=== PATIENT | male | born 1970 ===

== ENCOUNTER → 2017-06-09 | Day surgery (SDC) | payer OTHER ==
[2017-05-23 11:38] VITALS: Ht 180.3 cm; Wt 100.0 kg
[~2017-06-09] VITALS: Ht 180.3 cm; Wt 100.0 kg
[~2017-06-09] MED LIST: ARTI99.0 OPL; ATROPINE SULFATE 0.1 MG/ML 5ML SYR IV PRN; BUPIVACAINE 0.5 % 5 MG/1 ML MPF 30ML VIAL ONE; CEFAZOLIN 2000MG IV PUSH 10 ML IV SCH; EpHEDrine SULFATE INJ 50 MG/ML AMP IV PRN; EpINEphrine HCL INJ 1 MG/ML 5ML SYRINGE ONE; FENTANYL CITRATE INJ 50 MCG/1 ML 2 ML VIAL IV PRN; FENTANYL CITRATE INJ 50 MCG/1 ML 2 ML VIAL ONE; GLYCOPYRROLATE INJ 0.2 MG/ML VIAL ONE; LACTATED RINGER'S 1000ML 1,000 ML IV SCH; LIDOCAINE HCL 2% 2 ML VIAL (20MG/ML) ONE; LIDOCAINE/EPINEPHRINE 1% INJ 50 ML VIAL ONE; METOCLOPRAMIDE HCL INJ 5 MG/ML 2 ML VIAL IV PRN; MIDAZOLAM HCL 1 MG/ML 2ML VIAL ONE; MoRPHine SULFATE 4 MG/ML 1 ML CARP\\VIAL IV PRN; NAPR-1169 PO; NEOSTIGMINE METHYLSULFATE 5 MG/5 ML SYR ONE; ONDANSETRON INJ 2 MG/ML 2 ML VIAL IV PRN; OXYC-57 PO; OXYCODONE/ACETAMINOPHEN 5-325 TAB PO PRN; PROPOFOL IV EMULSION 10 MG/ML 20 ML VIAL IV ONE; ROCURONIUM BROMIDE 10 MG/ML 5 ML VIAL IV ONE; ROPIVACAINE 0.5% 5 MG/ML 30 ML VIAL ONE; SODIUM CHLORIDE 0.9% 1000ML 1,000 ML IV SCH
--- NOTE | 2017-06-09 09:24 | History and Physical: Surg Cnt ---
History & Physical Date Jun 09, 2017. Chief Complaint Right shoulder injury/deformity History of Present Illness The patient is a 47 year old male with complaints of right shoulder injury approximately one year ago. He was weightlifting and performing isolated bicep curls with 205 pounds when he felt a pop in his right shoulder followed by pain. He reports having a deformity of his proximal biceps when he flexes his right elbow. The patient states his pain gradually improved and his strength returned but continues with his deformity. He is interested in surgical intervention. Denies any prior injury to the right upper extremity. Denies numbness and tingling of his right upper extremity. Past Medical/Surgical History Past Medical History: -negative for any type of currently treated pathology Past Surgical History: -negative Social History: -patient is currently an inmate at [facility]. Smokes approximately 7 cigarettes per day. Family History: -non-contributory Additional History Hepatic Disease: No Endocrine Disorder: No Kidney Disease: No Hypertension: No Heart Disease: No Bleeding Tendencies: No Infectious Diseases: No Other: Review of systems: The patient denies headache, chest pain, shortness of breath , fevers, chills, night sweats. Allergies Coded Allergies: No Known Allergies (Unverified , 06/09/17) Home Medications Scheduled Artificial Tear Solution (Natural Balance Tears 70.01-0.3 %), 2 DROP OPL QID Naproxen (Naprosyn), 500 MG PO BID Physical Examination Skin: warm/dry, no rash Eyes: normal inspection, + pertinent finding (wears an eye patch on the left eye) ENT: normal ENT inspection, + pertinent finding (appears to have good dentition , no evidence of exudates or erythema in the oral cavity, oral and nasal cavities are patent.) Head: normocephalic, atraumatic Respiratory/Chest: lungs clear, normal breath sounds, no respiratory distress Cardiovascular: regular rate, rhythm, no edema, no murmur Abdomen / GI: normal bowel sounds, non tender Back: normal inspection Extremities: normal inspection (until flexes right elbow), normal range of motion, + pertinent finding (There is a "Derrick" deformity of the right proximal biceps while flexing at the right elbow, which also has full range of motion. He has +5 strength. Mild tenderness while palpating in the bicepital groove. Provocative testing of the right shoulder is negative and does not elicit any pain. ) Neurologic/Psych: no motor/sensory deficits, alert, oriented x 3 Diagnosis Right shoulder long head biceps tear Plan of Treatment Kevin will undergo a right shoulder arthroscopy, rotator cuff and labral repairs vs. debridement, long head biceps tenotomy versus tenodesis, subacromial decompression, exam under anesthesia. He will be provided with narcotic pain medication at [facility]. I would recommend Percocet 5/325mg 1- 2 every 4-6 hours as needed for pain. Ice can be placed over the right shoulder for cryotherapy. Pre-operative labs have been obtained in the form of a CBC, CMP, PT/INR. A two week follow up will be required for suture removal and post-operative check. Any other questions or concerns please notify [facility] at [phone], thank you.
--- NOTE | 2017-06-09 10:28 | History & Physical Bridge - SC ---
H&P Re-Evaluation Bridge Note: I have examined the patient, reviewed the History & Physical and in the interval since the performance of the History & Physical I have noted the following changes of clinical significance: No changes noted
--- NOTE | 2017-06-09 11:50 | Discharge Instructions-SurgCtr ---
Discharge Instructions Date of Service Jun 09, 2017. Visit Reason for Visit: Right Shoulder Proximal Biceps Tear Discharge Discharge Diagnosis / Problem: Right shoulder long head biceps tear Discharge Goals Goal(s): Decrease discomfort, Improve function, Increase independence Activity Recommendations Activity Limitations: as noted below Lifting Limitations: until after follow-up appointment Exercise/Sports Limitations: until after follow-up appointment Shower/Bathe: keep incision dry Anesthesia . Post Anesthesia Instructions: If you have had General Anesthesia or IV Sedation: * Do not drive today. * Resume driving when surgeon permits. * Do not make important decisions or sign legal documents today. * Call surgeon for: 1. Temperature elevations greater than 101 degrees F. 2. Uncontrollable pain. 3. Excessive bleeding. 4. Persistent nausea and vomiting. 5. Medication intolerance (nausea, vomiting or rash). * For nausea and vomiting use only clear liquids such as: tea, soda, bouillon until nausea subsides, then gradually increase diet as tolerated. * If you have any concerns or questions, call your surgeon's office. If physician is unavailable and it is an emergency, call 911 or go to the nearest emergency room. . Instructions / Follow-Up Instructions / Follow-Up The following are instructions to follow after "Shoulder Surgery" ACTIVITY RECOMMENDATIONS: * Minimize activity after surgery. * No excessive walking, jogging, sports or laboring. * Return to activity is individualized depending on the patient and type of surgery. * Expect increased discomfort with increased activity. Continue to ice the shoulder as needed. MEDICATIONS: * You will need pain medication and an anti-inflammatory medication after surgery. * Use the pain medication for severe pain and the anti-inflammatory for less severe pain. Once the pain medication has run out, try to use the anti-inflammatory medication. If this is not effective, contact the office for assistance. * The pain medication may cause nausea, constipation and drowsiness. * The anti-inflammatory medication may cause stomach upset and bleeding. If this occurs let your doctor know immediately . * Take a stool softener like Colace or a laxative like Senokot to prevent constipation. DIET: * Resume previous diet. SPECIAL CARE: ICE: You have the option of an ice cooler, gel packs or ice bags. * use ice bags or gel packs. Do not apply ice directly to the skin. Use a thin dressing or miriam shirt between the skin and ice bag. Apply ice for 20-30 minutes and repeat every 2-4 hours. This is especially important for the first 7-10 days after surgery. Once the pain improves, use ice as needed. ELEVATION: * You may be more comfortable sleeping in an upright position. Use the sling to elevate your arm. DRESSING: * Your dressing will be changed approximately 4-5 days after surgery. Band-aids, tape strips or gauze may be applied. You may then change your dressing daily. * Do not touch the incision area. * Once the stitches are removed, you may leave the wound open to air or cover with gauze. * Expect some bloody drainage for the first few days after surgery. * Band-aids and gauze may be changed daily. * There may be a gauze pad in your armpit area. This can be changed daily or replaced by a dry washcloth. SLING/BRACE: * You will need to use a sling or brace after surgery. The length of time the sling is used is dependent upon the type of surgery performed. * Arthroscopic Acromioplasty requires use of the sling for 2-4 weeks for comfort. * Labral procedures and Rotator Cuff Repairs require use of the sling for a longer period of time. Please check with your doctor prior to discontinuing the sling. BATHING: * You may shower or sponge-bathe immediately after surgery. The post operative shoulder dressing is mostly water-tight. You may shower right over this dressing, but be reasonably careful not to get the gauze or incision wet. * Once the dressing has been changed on the fourth or fifth day after surgery, you may shower and get the incision wet. * Wash with regular soap and water. * Keep the surgical site dry. Keep covered when showering and then replace bandages. * There is no need to apply any ointments, powders or salves to your incision. * Do not apply alcohol or hydrogen peroxide directly to the incision. * Diluted peroxide (50:50 mixture with sterile saline) may be used to clean dried blood from around the incision area. THERAPY: * You will begin therapy four or five days after surgery. * Organized therapy with the therapist is important for the first 2-4 months after surgery depending on the type of procedure. During that time you will attend therapy 1-3 times per week. * You will also need to do daily exercises for range of motion and strength as instructed. * Please check with your doctor regarding appropriate motion restrictions. * You are permitted to perform pendulums to prevent shoulder stiffness * You are permitted to perform active-assisted range of motion at the right elbow out of the sling * You are not permitted to perform any type of resistance regarding flexion or extension at the right elbow * It will take several months to slowly regain full/near full extension at the right elbow. Extension exercises/therapy at the right elbow will be constitution party of your therapy protocol. FOLLOW UP VISIT: * If not already scheduled, please call the office at to schedule a follow-up appointment for 10-15 days after surgery with Dr[address] Roy Diet Recommendations Home Diet: resume previous diet Procedures Procedures Performed: Right shoulder arthroscopy, subacromial decompression, labral and rotator cuff debridement, open long head biceps tenodesis, exam under anesthesia Pending Studies Studies pending at discharge: no Medical Emergencies . Who to Call and When: Medical Emergencies: If at any time you feel your situation is an emergency, please call 911 immediately. . Non-Emergent Contact Non-Emergency issues call your: Primary Care Provider . . "Provider Documentation" section prepared by Eduardo Rae. . [place] Drug Monitoring Program Search Results: no issues identified
--- NOTE | 2017-06-09 14:22 | [facility] Post Operative Brief Note ---
Immediate Operative Summary Operative Date Jun 09, 2017. Pre-Operative Diagnosis Right Shoulder Proximal Biceps Tear Post-Operative Diagnosis Same + labral tears, Rotator cuff partial undersurface tears, Impingement. Procedure(s) Performed 1) Right shoulder open long head biceps tenodesis. 2) Arthroscopy with extensive debridement labral and rotator cuff. 3) Subacromial decompression. 4) Exam under anesthesia Surgeon Dr Roy Mobile Security Specialist Surgeon(s) Katia Bear MD Estimated Blood Loss 15 ML Findings As above. Fluids (cc crystalloids) 1200 Specimens None Drains n/a Anesthesia GET + interscalene Nerve block Complication(s) None Disposition Recovery Room / PACU (Stable)
--- NOTE | 2017-06-09 14:24 | [facility] Operative Report ---
Operative Report Operative Date Jun 09, 2017. Pre-Operative Diagnosis Right Shoulder Proximal Biceps Tear Post-Operative Diagnosis Same + labral tears, Rotator cuff partial undersurface tears, Impingement. Procedure(s) Performed 1) Right shoulder open long head biceps tenodesis. 2) Arthroscopy with extensive debridement labral and rotator cuff. 3) Subacromial decompression. 4) Exam under anesthesia Surgeon Dr Roy Receiving Supervisor Surgeon(s) Katia Bear MD Estimated Blood Loss 15 ML Findings The Right shoulder was then examined under anesthesia and it exhibited: Forward flexion and abduction to 170 degrees; external rotation 90 degrees; internal rotation 55 degrees. There was no noted instability. Posterior and anterior translation was 1+ and they had no sulcus sign and was symmetric to their other side. The diagnostic arthroscopy commenced with the following findings: 1. The biceps anchor was at evidence of significant fraying, type II tear. There was significant synovitis around the anchor. 2. The anterior labrum showed some fraying from 12:00 to 3:00. 3. The inferior labrum was essentially intact. 4. The inferior pouch showed no loose bodies. 5. The posterior labrum showed some fraying from 9:00 to 12:00. 6. The articular surface of the glenoid was intact. 7. The articular surface of humeral head was intact. 8. The long Head of the Biceps was torn and scarred into the bicipital groove. There were some fibers of the long head of the biceps scarred in to the capsule. 9. The Subscapularis tendon was intact with minimal fraying near the bicipital groove. 10. The Supraspinatus tendon had some undersurface fraying at the most anterior aspect of the articular surface . 11. The Infraspinatus and Teres Minor were intact . 12. The Subacromial space showed significant synovitis and a small bony spur. The rotator cuff was intact. Fluids (cc crystalloids) 1200 Specimens None Drains n/a Anesthesia GET + Interscalene Nerve Block Complication(s) None Disposition Recovery Room / PACU (Stable) Implants 1) 6.25 mm Biocomposite SwiveLock (Arthrex). 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 They have ultrasound and clinical findings suggestive of long head of the biceps tear. Patient was unfortunately unable to obtain an MRI due to shrapnel. After a lengthy discussion regarding their options of conservative versus operative management, they have elected to proceed with surgery. The risks of surgery were discussed and include but not limited to: Infection, bleeding, nerve damage , continued pain, progression of arthritis, stiffness, decreased level of activity, and deep vein thrombosis. The patient understood all of their options and the risks of surgery and would like to proceed. The informed consent was signed. Description of Procedure The patient was taken to the operating room and following administration of her interscalene nerve block and general anesthetic, a multidisciplinary time-out was performed identifying my initials on the right shoulder as the correct and operative limb. The patient was then placed in beach chair position with all of their bony prominences well-padded. They were then prepped and draped in the usual orthopedic sterile fashion. All of the bony landmarks were marked as well as the planned incisions. The planned incisions were injected with a 50:50 mixture of 0.5% Marcaine plain and 1% Lidocaine with Epinephrine for a total of 15 cc. Then using a spinal needle which was placed intra-articularly into the glenohumeral joint and insufflated to 35 cc and there was noted appropriate back flow, an additional 15 cc were placed. The standard posterior portal was made with an 11-blade. Trocar was introduced into the glenohumeral joint in the standard fashion. Using a spinal needle, the anterior portal was placed lateral to the coracoid under direct visualization between the Long Head of the Biceps and Subscapularis. A 7mm cannula was then placed. The intra-articular portion of shoulder was addressed first with debriding any fraying from the labrum, long head of the biceps, subscapularis and supraspinatus tear. The labrum and rotator cuff were probed and found to be intact. The arthroscope had also been removed from the posterior portal and placed anteriorly for better posterior visualization. The arthroscope was then placed subacromially. There was bursitis and bony spur were noted. A lateral portal was created under direct visualization with a spinal needle. Once the bursitis was removed, the bursal side of the rotator cuff was normal. The bony spur was removed using bone block technique removing approximately 5 mm. The rent in the anterior capsule was closed using #2 FiberWire. The [id number] repair was completed with Bird Beak and suture lasso. All of the instruments were removed. Our attention was drawn to the extra- articular long head of the biceps. A longitudinal incision using the deltopectoral interval was used. The cephalic vein was identified. The large deltoid was retracted laterally and the pectoralis was retracted medially to expose [id number] shaft. Once the bicipital groove was identified it was incised to deliver the long head of biceps tendon. The scar tissue was released and the tendon delivered into the wound. Using FiberLoop the long head of biceps was whip stitched from the muscle tendinous junction for approximately 2-1/2 cm. It was found to fit through a 6 mm sizer. A guidepin was placed in the inferior aspect of the bicipital groove. A 6.5 mm tunnel was created. Any excess tendon was removed. The long head of the biceps was then anchored using a 6.25 mm Swivelock. The sutures from the anchor and the tendon were used to close the bicipital groove. The wound was copiously irrigated. The portal sites were closed with 3-0 Prolene in a standard fashion and covered with Xeroform. The anterior incision was closed with 20 and 3-0 Vicryl. The skin was closed with a running subcuticular using 4-0 Monocryl. The anterior incision was further covered with Dermabond and once that had dried and Steri- Strips were placed. The incisions were covered with 4 x 4's, ABDs, and foam tape. The patient was placed in a sling. The sponge and needle counts were correct. POSTOPERATIVE INSTRUCTIONS: The patient will follow-up with physical therapy in 3-5 days. The patient will wear sling full-time except for exercises for 2 weeks. He will avoid any heavy lifting. No resisted elbow flexion for 8 weeks. The patient will follow-up with me in 10 to 15 days. I attest to the content of the Intraoperative Record and any orders documented therein. Any exceptions are noted below.
[2017-06-09 15:26] VITALS: TEMP 36.4
--- NOTE | 2017-06-09 15:30 | Anesthesia Progress Nt - [facility] ---
Anesthesia Post Op Note Date & Time Jun 09, 2017 at 15:30 Vital Signs Pain Intensity: 0 Vital Signs Past 12 Hours Date Time Temp Pulse Resp B/P (MAP) Pulse Ox O2 Delivery O2 Flow Rate FiO2 06/09/17 15:24 55 20 06/09/17 15:24 56 20 99 06/09/17 15:23 59 21 98 06/09/17 15:23 59 21 06/09/17 15:22 36.4 57 20 159/93 94 Room Air 06/09/17 15:21 159/93 06/09/17 15:18 56 16 06/09/17 15:18 55 16 100 06/09/17 15:17 60 21 91 06/09/17 15:17 64 21 06/09/17 15:16 63 19 92 06/09/17 15:16 61 19 06/09/17 15:15 53 19 156/88 06/09/17 15:15 53 19 156/88 06/09/17 15:15 61 19 154/99 93 06/09/17 15:15 61 19 154/99 93 06/09/17 15:12 162/103 06/09/17 15:12 162/103 06/09/17 15:10 62 15 167/111 06/09/17 15:10 15 06/09/17 15:10 62 15 167/111 06/09/17 15:10 15 06/09/17 15:09 18 06/09/17 15:09 58 18 06/09/17 15:08 54 19 100 06/09/17 15:08 54 19 06/09/17 15:07 57 16 100 06/09/17 15:07 56 16 06/09/17 15:05 162/85 06/09/17 15:02 56 17 100 06/09/17 15:02 56 17 06/09/17 15:01 54 18 06/09/17 15:01 55 18 100 06/09/17 15:00 163/80 06/09/17 14:56 59 20 06/09/17 14:56 59 20 98 06/09/17 14:55 61 23 06/09/17 14:55 23 06/09/17 14:50 23 06/09/17 14:50 64 23 166/78 06/09/17 14:47 36.0 70 18 177/79 96 Mask 8 11/17/17 14:47 177/79 11/17/17 11:09 0 11/17/17 11:06 139/70 11/17/17 11:04 51 11/17/17 11:04 51 15 100 11/17/17 11:03 48 16 100 11/17/17 11:03 49 11/17/17 11:01 141/55 11/17/17 10:58 50 11/17/17 10:58 50 11 99 11/17/17 10:56 122/70 11/17/17 10:53 51 11/17/17 10:53 50 11 99 11/17/17 10:52 52 11/17/17 10:52 51 11 99 11/17/17 10:51 53 11/17/17 10:51 54 11 142/65 99 11/17/17 10:46 52 11/17/17 10:46 53 11 135/69 99 11/17/17 10:41 52 11 99 11/17/17 10:41 52 11/17/17 10:40 50 12 11/17/17 10:36 130/73 11/17/17 10:35 51 24 11/17/17 10:31 158/76 11/17/17 10:30 53 12 11/17/17 10:25 50 11/17/17 10:25 50 20 155/89 97 11/17/17 10:20 51 11/17/17 10:20 51 0 96 11/17/17 10:15 49 11/17/17 10:15 49 0 97 11/17/17 10:10 52 11/17/17 10:10 52 0 96 11/17/17 10:05 50 11/17/17 10:05 50 0 97 11/17/17 10:00 53 11/17/17 10:00 53 0 98 11/17/17 09:55 50 0 98 11/17/17 09:55 50 11/17/17 09:50 53 11/17/17 09:50 53 0 98 11/17/17 09:45 54 11/17/17 09:45 54 0 97 11/17/17 09:40 53 0 97 11/17/17 09:40 53 11/17/17 09:35 0 11/17/17 09:30 54 0 97 11/17/17 09:30 54 06/09/17 09:25 53 06/09/17 09:25 52 0 98 06/09/17 09:20 54 0 97 06/09/17 09:20 53 06/09/17 09:15 66 06/09/17 09:15 68 0 97 06/09/17 09:10 53 06/09/17 09:10 55 0 99 06/09/17 09:05 53 06/09/17 09:05 53 0 96 06/09/17 09:00 55 06/09/17 09:00 57 0 97 06/09/17 08:55 56 06/09/17 08:55 57 0 98 06/09/17 08:50 0 06/09/17 08:45 0 06/09/17 08:42 36.6 57 20 135/81 (99) 95 Room Air 06/09/17 08:41 135/81 06/09/17 08:40 0 Notes Mental Status: alert / awake / arousable, participated in evaluation Pt Amnestic to Procedure: Yes Nausea / Vomiting: adequately controlled Pain: adequately controlled Airway Patency, RR, SpO2: stable & adequate BP & HR: stable & adequate Hydration State: stable & adequate Anesthetic Complications: no major complications apparent
[2017-06-09 15:59] VITALS: BP 169/93; PULSE 66; O2SAT 94
== END | disposition home or self-care (01) ==
LOC: X.SURG 08:32
PROVIDERS: ATTEND Orthopaedic Surgery Sports Medicine
DX: S46.111A Strain of muscle, fascia and tendon of long head of biceps, right arm, initial encounter (principal); X50.9XXA Other and unspecified overexertion or strenuous movements or postures, initial encounter; Y93.B3 Activity, free weights; M25.811 Other specified joint disorders, right shoulder; F17.200 Nicotine dependence, unspecified, uncomplicated